=== PATIENT | male | born 1940 | race Caucasian/White ===

== ENCOUNTER 2021-08-27 13:51 | Inpatient (IN) | payer MEDICARE, MEDICAID ==
[~2021-08-27] VITALS: Ht 172.7 cm; Wt 83.0 kg
--- NOTE | 2021-08-27 14:30 | NUR ---
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
--- NOTE | 2021-08-27 14:41 | NUR ---
MOVE SHEET SUBMITTED AND CALLED FOR TELE BED.
[2021-08-27 15:02] LABS: BASOPHILS # (AUTO) 0.1 K/uL (0.0-0.2); EOSINOPHILS % (AUTO) 2.4 % (0.0-6.0); HEMATOCRIT 41 % (39-51); HEMOGLOBIN 13.5 g/dL (13.5-17.5); LYMPHOCYTES # (AUTO) 2.4 K/uL (0.8-4.8); LYMPHOCYTES % (AUTO) 31.7 % (20.0-44.0); MEAN CORPUSCULAR HGB CONC 33 g/dl (31.0-36.0); MEAN CORPUSCULAR VOLUME 92 fL (80-96); MONOCYTES # (AUTO) 0.6 K/uL (0.1-1.30); MONOCYTES % (AUTO) 8.6 % (2.0-12.0); NEUTROPHILS # (AUTO) 4.2 K/uL (1.8-8.9); NEUTROPHILS % (AUTO) 56.3 % (43.0-81.0); RED BLOOD CELL COUNT(AUTO) 4.43 MIL/uL (4.5-6.0); WHITE BLOOD COUNT (AUTO) 7.5 K/uL (4.3-11.0)
--- NOTE | 2021-08-27 15:11 | NUR ---
TAKEN TO CT
[2021-08-27 15:14] LABS: CALCIUM, SERUM 8.3 mg/dL (8.5-10.1); CARBON DIOXIDE 29 mmol/L (21-32); CHLORIDE 106 mmol/L (98-107); CREATININE 2.7 mg/dL (0.6-1.3); GLUCOSE 121 mg/dL (74-106); POTASSIUM 5.1 mmol/L (3.5-5.1); SODIUM SERUM 141 mmol/L (136-145); UREA NITROGEN, BLOOD 37 mg/dL (7-18)
[2021-08-27 15:17] LABS: ALANINE AMINOTRANSFERASE 58 U/L (12-78); ALBUMIN 3.9 g/dL (3.4-5.0); ALKALINE PHOSPHATASE 84 U/L (46-116); ASPARTATE AMINOTRANSFERASE 20 U/L (15-37); BILIRUBIN,DIRECT 0.1 mg/dL (0.0-0.2); BILIRUBIN,TOTAL 0.2 mg/dL (0.2-1.0); LIPASE 118 U/L (73-393); TOTAL PROTEIN, SERUM 7.5 g/dL (6.4-8.2)
[2021-08-27 15:47] LABS: PLATELET COUNT (AUTO) 183 K/uL (150-450)
--- NOTE | 2021-08-27 15:54 | NUR ---
COVID SWAB DONE AND SENT TO LAB
--- NOTE | 2021-08-27 16:10 | NUR ---
DR SHEIKH AT BEDSIDE
[2021-08-27] MEDS ORDERED: MAG HYDROX/AL HYDROX/SIMETH 30 ML UDC PO PRN (17:30)
[2021-08-27] MEDS ORDERED: ONDANSETRON HCL/PF 4 MG/2 ML VIAL IVP PRN (17:30)
[2021-08-27] MEDS ORDERED: Z GUARD REMEDY 2 OZ OINT TP PRN (17:30)
[2021-08-27] MEDS ORDERED: MAGNESIUM HYDROXIDE 30 ML UDC PO PRN (17:30)
[2021-08-27] MEDS ORDERED: ACETAMINOPHEN 325 MG TABLET PO PRN (17:30)
[2021-08-27] MEDS: IV NS 0.9% 1,000 ML IV PRN (19:25)
--- NOTE | 2021-08-27 19:55 | NUR ---
REPORT GIVEN TO ARLEEN BOYD
--- NOTE | 2021-08-27 20:12 | NUR ---
PATIENT TRANSFERRED NO ACUTE DISTRESS NOTED.
[2021-08-27] MEDS: CARVEDILOL 6.25 MG TABLET PO SCH (22:38)
[2021-08-27] MEDS: hydrALAZINE HCL 25 MG TABLET PO SCH (22:39)
[2021-08-28] VITALS: BP 141/71
[2021-08-28 03:34] LABS: BILIRUBIN,URINE NEGATIVE (NEGATIVE); COLOR,URINE YELLOW (YELLOW); LEUKOCYTE ESTERASE ,URINE NEGATIVE (NEGATIVE); NITRITE, URINE NEGATIVE (NEGATIVE); PROTEIN,URINE TRACE mg/dl (NEGATIVE); UGLUCOSE NEGATIVE (NEGATIVE); UROBILINOGEN,URINE 0.2 EU/dL (0.2)
[2021-08-28 03:59] LABS: BACTERIA,URINE None seen /HPF (None Seen); RBC,URINE 0-2 /HPF (0-2); SQUAMOUS EPITHELIAL CELL,UR Few /HPF (None Seen); WBC,URINE 0-2 /HPF (0-3)
[2021-08-28 04:00] VITALS: BP 136/61
[2021-08-28 07:09] LABS: BASOPHILS # (AUTO) 0.1 K/uL (0.0-0.2); BASOPHILS % (AUTO) 0.9 % (0.0-2.0); HEMATOCRIT 38 % (39-51); HEMOGLOBIN 12.7 g/dL (13.5-17.5); LYMPHOCYTES # (AUTO) 2.1 K/uL (0.8-4.8); LYMPHOCYTES % (AUTO) 33.2 % (20.0-44.0); MEAN CORPUSCULAR HGB CONC 33 g/dl (31.0-36.0); MEAN CORPUSCULAR VOLUME 92 fL (80-96); MONOCYTES # (AUTO) 0.5 K/uL (0.1-1.30); MONOCYTES % (AUTO) 8.3 % (2.0-12.0); NEUTROPHILS # (AUTO) 3.4 K/uL (1.8-8.9); NEUTROPHILS % (AUTO) 54.6 % (43.0-81.0); PLATELET COUNT (AUTO) 176 K/uL (150-450); RED BLOOD CELL COUNT(AUTO) 4.19 MIL/uL (4.5-6.0); WHITE BLOOD COUNT (AUTO) 6.2 K/uL (4.3-11.0)
--- NOTE | 2021-08-28 07:40 | NUR ---
STRIPPER AND TAPER OPENING NOTE Patient in bed, asleep. A/O x 4. On room air, breathing evenly and unlabored. No SOB or s/s of distress noted. IV access on RAC #20G infusing NS at 75 ml/hr. On tele monitoring showing SR, HR on the 80's. Safety precautions in place: bed in low, locked position; siderails up x2; call light within reach. Will continue to monitor.
[2021-08-28 08:00] VITALS: BP 149/83
[2021-08-28 08:06] LABS: CALCIUM, SERUM 7.9 mg/dL (8.5-10.1); CARBON DIOXIDE 24 mmol/L (21-32); CHLORIDE 108 mmol/L (98-107); CREATININE 2.6 mg/dL (0.6-1.3); GLUCOSE 107 mg/dL (74-106); POTASSIUM 4.4 mmol/L (3.5-5.1); SODIUM SERUM 143 mmol/L (136-145); UREA NITROGEN, BLOOD 31 mg/dL (7-18)
[2021-08-28 08:09] LABS: MAGNESIUM 2.3 mg/dL (1.8-2.4); PHOSPHORUS 3.2 mg/dL (2.5-4.9)
[2021-08-28] MEDS ORDERED: LOSA50TA39 PO (09:16)
[2021-08-28] MEDS ORDERED: DUTA0.5C37 PO (09:16)
[2021-08-28] MEDS ORDERED: ROSU10TA29 PO (09:16)
[2021-08-28] MEDS ORDERED: GLIM4TAB37 PO (09:16)
[2021-08-28] MEDS ORDERED: MEMA10TA56 PO (09:16)
[2021-08-28] MEDS ORDERED: CLOP75TA15 PO (09:16)
[2021-08-28] MEDS ORDERED: AMLO-212 PO (09:16)
[2021-08-28] MEDS ORDERED: HYDR-4076 PO (09:16)
[2021-08-28] MEDS ORDERED: CARV6.252 PO (09:16)
[2021-08-28] MEDS: hydrALAZINE HCL 25 MG TABLET PO SCH (09:21)
[2021-08-28 09:22] VITALS: BP 149/83
[2021-08-28] MEDS: CARVEDILOL 6.25 MG TABLET PO SCH (09:22)
[2021-08-28] MEDS: IV NS 0.9% 1,000 ML IV PRN (10:16)
--- NOTE | 2021-08-28 12:00 | NUR ---
DISCHARGE NOTE Received order for discharge. Patient is A/O x 4, able to make needs known. Patient is breathing evenly and unlabored in room air. Denies any pain or discomfort at this time. Verbal discharge instructions given to patient and son, both verbalized understanding. Patient/family did not want to wait for exitcare folder, son will return today or tomorrow to picker operator exitcare folder. IV access removed, catheter tip intact, pressure dressing applied; no signs of bleeding noted. ID band removed. all belongings accounted for. Patient left in stable condition via private car with son.
== END 2021-08-28 11:10 | disposition home or self-care (01) | DRG 682 ==
LOC: ER 13:57 → TRANSITION 19:11 → TELE 19:46
PROVIDERS: ADMIT Internal Medicine; ATTEND Internal Medicine
DX: N17.0 Acute kidney failure with tubular necrosis (principal); G93.41 Metabolic encephalopathy; I69.354 Hemiplegia and hemiparesis following cerebral infarction affecting left non-dominant side; I12.9 Hypertensive chronic kidney disease with stage 1 through stage 4 chronic kidney disease, or unspecified chronic kidney disease; N18.9 Chronic kidney disease, unspecified; R53.1 Weakness; R62.7 Adult failure to thrive; Z68.27 Body mass index [BMI] 27.0-27.9, adult
CPT/HCPCS: 36415; 70450-TC; 71045-TC; 76770-TC; 80048-TC; 80076-TC; 81001; 82962-TC; 83690-TC; 83735-TC; 84100-TC; 84484-TC; 85025-TC; 87081-TC; C9803; G0378; J7030